=== PATIENT | male | born 1950 | race African-American/Black ===

== ENCOUNTER 2017-05-06 09:25 | Day surgery (SDC) | payer MEDICARE, BC ==
[2017-05-04 15:16] VITALS: BMI 39.1
[~2017-05-06 09:25] MED LIST: LACTATED RINGERS 1,000 ML IV SCH
[2017-05-06] MEDS ORDERED: LIDOCAINE 1% 20 ML VIAL (10MG/ML) FOR IV START INTRADERMA ONE (10:07)
[2017-05-06 10:20] VITALS: RESP 16; TEMP 98
[2017-05-06] MEDS ORDERED: LIDOCAINE 1% INJ 10MG/ML (20 ML MDV) ONE (11:15)
[2017-05-06] MEDS ORDERED: PROPOFOL 10 MG/ML 20 ML VIAL IV ONE (11:15)
--- NOTE | 2017-05-06 11:49 | P.PCN ---
Date of Procedure: 05/06/17 Procedure(s) Performed: Procedure: Colonoscopy and polypectomy. Preoperative diagnosis: Screening for neoplasia, patient has family history of colon cancer in his mother. Postoperative diagnosis: 3 small polyps in the right colon and around the hepatic flexure, snared, but no large polyps or cancer. Preparation: HalfLytely prep. Sedation: Was provided by anesthesia. Brief clinical history: The patient is a 66-year-old male who is scheduled for this evaluation because of family history of colon cancer in his mother who developed cancer at age 46. The patient had one colonoscopy many years ago. At this time, he has no abdominal complaints, bleeding or anemia. Procedure: With the patient on his left lateral decubitus position and after informed consent and adequate sedation, the perianal area was inspected and it did not show any fissures or fistulas. There were no masses felt on digital rectal examination. The Olympus CFQ 160L video colonoscope was then inserted in the rectum in the usual fashion and advanced to the cecum. There were 3 small polyps seen, two around the hepatic flexure and one on the right colon, and those were snared and retrieved by suction and submitted together. No large polyps were seen or any obvious diverticular disease or other pathology. I retroflexed the endoscope in the rectum before the endoscope was withdrawn. The patient tolerated the procedure well. Plan: The patient was reassured. He will follow up with you as planned and I recommended repeat exam in 5 years.
[2017-05-06 12:13] VITALS: BP 156/88; PULSE 51
== END 2017-05-06 12:30 | disposition home or self-care (01) ==
LOC: ORWHC2ENDO 09:25
DX: Z12.11 Encounter for screening for malignant neoplasm of colon (principal); D12.3 Benign neoplasm of transverse colon; D12.2 Benign neoplasm of ascending colon; Z80.0 Family history of malignant neoplasm of digestive organs; I10 Essential (primary) hypertension; E78.5 Hyperlipidemia, unspecified; M10.9 Gout, unspecified
CPT/HCPCS: 88305; 45385; J2001; J2704

== ENCOUNTER → 2020-05-10 | Outpatient (CLI) | payer MEDICARE | END | disposition home or self-care (01) | LOC: LABPAT 15:14 | PROVIDERS: ATTEND Orthopaedic Surgery | DX: Z01.812 Encounter for preprocedural laboratory examination (principal) | CPT/HCPCS: 87070 ==

== ENCOUNTER 2020-06-11 11:23 | Day surgery (SDC) | payer MEDICARE ==
[2020-06-05 11:12] VITALS: BMI 43.8
--- NOTE | 2020-06-10 11:03 | HP ---
HISTORY AND PHYSICAL CHIEF COMPLAINT: Left knee pain. HISTORY OF PRESENT ILLNESS: Patient is a 70-year-old retired gentleman who presents with progressive left knee pain for the past 7-8 years. It is getting worse. He is having swelling, stiffness, and soreness with any weightbearing activities. He has tried medications in addition to a home exercise program and weight loss program without much relief. He also tried therapy, but had to stop because of his symptoms. PAST MEDICAL HISTORY: Significant for reflux disease, hypercholesterolemia, hypertension, arthritis, and gout. PAST SURGICAL HISTORY: Negative. CURRENT MEDICATIONS: 1. Allopurinol. 2. Atorvastatin. 3. Calli. 4. Vitamin D. ALLERGIES: He denies drug allergies. FAMILY HISTORY: Significant for cancer. SOCIAL HISTORY: Negative for current tobacco or alcohol use. REVIEW OF SYSTEMS: Sixteen-point review of systems otherwise reviewed and is noncontributory. PHYSICAL EXAMINATION: On examination, the patient is approximately 5 feet 7 inches, 270 pounds of endomorphic habitus. HEENT exam is nonfocal. Neck is supple. He has painless passive motion of his left hip. Straight leg raise is negative. Active motion left knee -10 to 104 degrees of flexion. He has trace effusion. He is tender about the medial joint line. Collaterals are stable, Diandra is negative, Yazan's is equivocal. He has genu varum alignment. His distal neurovascular exam appears intact in the left lower extremity. Weightbearing notch, lateral and Merchant views of left knee obtained in the office show severe medial and patellofemoral compartment narrowing with [id number] changes and subchondral sclerosis. IMPRESSION: 1. Left knee severe medial and patellofemoral compartment osteoarthrosis. 2. Gout. 3. Hypertension. 4. Increased body mass index. RECOMMENDATIONS: I talked to the patient at length regarding his condition and treatment options. At this point, he is quite symptomatic and limited because of pain related to his osteoarthrosis despite previous conservative measures to include anti-inflammatories, activity modifications, and attempted weight loss. After thorough discussion, he opts to proceed with surgery. We will plan to proceed with left total knee arthroplasty. We will institute DVT prophylaxis postoperatively. MMODL / IJN: [id number] /
[~2020-06-11 11:23] MED LIST changes: +ACETAMINOPHEN TAB 500 MG TAB PO PRN; +DEXAMETHASONE SOD PHOSPHATE 4 MG/ML 1 ML VIAL IV ONE; +HYDROmorphone 0.5 MG/0.5 ML SYRINGE IVP PRN; +LIDOCAINE 1% (10MG/ML) FOR IV START INTRADERMA PRN; +MELOXICAM 7.5 MG TAB PO PRN; +MIDAZOLAM 2 MG/2 ML VIAL IV PRN; +ONDANSETRON 4 MG/2 ML VIAL IVP ONE; +TRANEXAMIC ACID 1,000 MG in SODIUM CHLORIDE 0.9% 100 ML IVPB PRN; +ceFAZolin 3 GM in SODIUM CHLORIDE 0.9% 100 ML IVPB PRN
[2020-06-11] MEDS ORDERED: fentaNYL (PF) 50 MCG/ML 2 ML AMP IVP ONE (12:08)
[2020-06-11] MEDS ORDERED: MIDAZOLAM 2 MG/2 ML VIAL IVP ONE (12:08)
[2020-06-11] MEDS ORDERED: fentaNYL (PF) 50 MCG/ML 2 ML AMP ONE (12:34)
[2020-06-11] MEDS ORDERED: PROPOFOL 10 MG/ML 20 ML VIAL IV ONE (12:34)
[2020-06-11] MEDS ORDERED: TRANEXAMIC ACID 1,000 MG/10 ML VIAL ONE (12:34)
[2020-06-11] MEDS ORDERED: MIDAZOLAM 2 MG/2 ML VIAL ONE (12:34)
[2020-06-11] MEDS ORDERED: SODIUM CHLORIDE 0.9% 100 ML BAG ONE (12:34)
[2020-06-11] MEDS: ROPIVACAINE 246.25 MG, EPINEPHrine 0.5 MG, KETOROLAC 30 MG, cloNIDine HCL/PF 80 MCG, WA... MISCELLANE PRN ×10 (13:07→14:00)
[2020-06-11] MEDS ORDERED: ROPIVACAINE 0.2%-NS ON-Q PUMP 1,090 MG, EMPTY PAIN BALL 1 EACH MISCELLANE PRN (13:09)
--- NOTE | 2020-06-11 13:13 | P.ANPRN ---
Procedure Note - Anesthesia - Nerve Block Performed Left Adductor Canal Time Out Performed: Yes (12:) Date of Procedure: 06/11/20 Procedure Start Time: Procedure Stop Time: Location of Patient: PreOp Indication: Acute Post-Operative Pain, Requested by Surgeon (Dr John) Sedation Type: Sedate with meaningful contact maintained Preparation: Sterile Prep, Sterile Dressing Position: Supine Catheter: Indwelling Needle Types: Pajunk Needle Gauge: 21 Ultrasound used to visualize needle placement: Yes Ultrasound used to observe medication spread: Yes Injectate: 0.5% Ropivacaine (see comment for volume) (20cc) Blood Aspirated: No Pain Paresthesia on Injection Noted: No Resistance on Injection: Normal Image Stored and Saved: Yes Events: Uneventful and Well Tolerated
[2020-06-11] MEDS ORDERED: NALOXONE 0.4 MG/ML 1 ML VIAL IV PRN (14:18)
[2020-06-11] MEDS ORDERED: HYDROmorphone 1 MG/ML 1 ML SYRINGE IVP PRN (14:18)
[2020-06-11] MEDS ORDERED: ONDANSETRON 4 MG/2 ML VIAL IVP PRN (14:18)
[2020-06-11] MEDS ORDERED: MAGNESIUM HYDROXIDE 2,400 MG/10 ML CUP PO PRN (14:18)
[2020-06-11] MEDS ORDERED: ACETAMINOPHEN TAB 325 MG TAB PO PRN (14:18)
[2020-06-11] MEDS ORDERED: HYDROcodone/APAP 7.5-325MG 1 EACH TAB PO PRN ×2 (14:18→14:20)
[2020-06-11] MEDS ORDERED: HYDROmorphone 0.5 MG/0.5 ML SYRINGE IVP PRN (14:18)
[2020-06-11 14:55] VITALS: TEMP 97.6
--- NOTE | 2020-06-11 15:03 | P.OP ---
Date of Procedure: 06/11/20 Preoperative Diagnosis: Left knee severe tricompartmental osteoarthrosis Postoperative Diagnosis: Same Procedure(s) Performed: Left total knee arthroplastycementedposterior stabilized Implants: Depuy Attune size 7 cemented femoral component, size 6 cemented tibial component, 12 mm articular surface, 35 mm patella. This is a posterior stabilized implant. A 14 x 50 mm tibial stem was utilized. Anesthesia: regional, local, spinal Surgeon: Angelito John Scraper Tender #1: Pino Espinal Estimated Blood Loss (ml): 50 Pathology: other (Bone fragments) Condition: stable Disposition: PACU Indications for Procedure: The patient is a 70-year-old male who presents with progressive left knee pain secondary osteoarthrosis despite conservative measures. After thorough discussion of his options he decided to proceed with surgery. Operative risks to include infection, fracture, neurovascular injury, development of blood clots, possible component loosening/failure and need for subsequent procedures was discussed. Informed consent was obtained. Operative Findings: As below Description of Procedure: The patient was brought to the operating room, and after induction of spinal anesthesia the left lower extremity was prepped and draped in a normal fashion. The tourniquet was inflated to 270 mm marker. A longitudinal incision extending 3 finger breaths above the superior pole of patella extending to the medial aspect the tibial tubercle was then made. The skin and subcutaneous tissues were divided sharply. Electrocautery was used for hemostasis. A medial pa rapatellar arthrotomy was performed. The medial soft tissues to include the superficial and deep portions of the medial collateral ligament were elevated subperiosteally. The patella was everted. A portion of the retropatellar fat pad was excised sharply. The anterior cruciate ligament was sacrificed. Blunt retractors were placed. A starting hole was made in the distal femur 1 cm anterior to the posterior cruciate ligament origin. An intramedullary femoral guide was then inserted planning on 5 valgus distal cut with 9 mm distal resection. The cutting block was pinned in place. The distal cut was then made. The posterior referencing sizing guide was utilized. I felt size 7 was most appropriate. 3 of external rotation was built into the system and verified off the trans-epicondylar axis and the posterior condyles. The cutting block was pinned in place. The anterior, posterior, and chamfer cuts then made. Bone fragments were removed. The intercondylar guide was placed and the notch cut was made with a sagittal saw. The bone block was removed in one fragment. The trial component was then placed. There is good anterior to posterior and medial to lateral fit. The distal peg holes were drilled. The trial component was removed. Attention was then paid towards preparing the proximal femur. An extra medullary guide was utilized in line with the tibial shaft and second metatarsal distally. I planned on 2 mm resection from the medial compartment. The cutting block was pinned in place. The proximal tibial cut was then made. The bone was removed in one fragment. The remnants of the medial and lateral menisci were excised at the capsular junction with electrocautery. The tibia sized most appropriately at size 6. The trial femoral and tibial components w ere placed along with a 9 mm articular surface. I was able to obtain full flexion and extension with internal and external rotation. After several flexion and extension cycles, the tibial rotation was marked with electrocautery line with the medial one third of the tibial tubercle. Attention was then paid towards preparing the patella. A patella reamer was utilized taking stem to 14 mm of bone stock. A good flush cut was made. The patella sized most appropriately 35 mm. The peg holes were drilled. The trial components placed. I had good patellofemoral tracking with no hands technique. The trial components were then removed. The tibia was prepared in the appropriate rotation with appropriate drill and keel punch planning on a 14 x 50 mm tibial stem extension. The posterior osteophytes were removed with a curved osteotome. The flexion and extension gaps were checked and felt to be symmetric at 12 mm. A trial components were then removed. The posterior soft tissues were injected with ropivacaine. The bony surfaces were prepared with pulsatile lavage and dried. The tibial component was then cemented place was fully seated. Excess cement was removed. The femoral component cemented place and was fully seated. Excess cement was removed. The trial 12 mm articular surface was placed and the knee was put in full extension. The patella component was cemented place. After the cement had sufficiently hardened, the knee was again taken through a range of motion. Again I was able to obtain full flexion and extension with varus and valgus stress. The trial 12 mm articular surface was removed and the final one inserted. This was fully seated. Care was taken to avoid any soft tissue interposition. Pulsatile lavage was again utilized. The medial parapatellar arthrotomy was closed with #2 Ethibond suture. The tourniquet was deflated with approximately 60 minutes total tourniquet time. Final hemostasis was obtained with the cautery. There was minimal bleeding therefore a deep drain was not placed. The subcutaneous tissues were reapproximated with interrupted 2-0 Vicryl sutures. The skin was reapproximated with 3-0 subcuticular strata fix suture. Skin tape and adhesive was applied. A sterile dressing was applied. The patient was awoken from sedation and transferred to recovery room in good condition. Blood loss was estimated at 50 mL. No complications were incurred. Sponge and needle counts were correct at the end of the case. Ender BEAUCHAMP assisted during the major components of this case to include exposure, bone resection, implantation, and closure.
--- NOTE | 2020-06-11 15:25 | XR ---
EXAMINATION TYPE: XR knee limited LT DATE OF EXAM: 06/11/2020 CLINICAL HISTORY: pain TECHNIQUE: Three views of the left knee are obtained. COMPARISON: None. FINDINGS: There is no acute fracture/dislocation. The tri-compartment joint spaces appear within no rmal limits. The overlying soft tissue appears unremarkable. IMPRESSION: There is no acute fracture or dislocation ICD 10 NO FRACTURE, INITIAL EVALUATION
[2020-06-11] MEDS ORDERED: HYDROcodone/APAP 7.5-325MG 1 EACH TAB PO ONE (17:23)
[2020-06-11 17:43] VITALS: RESP 20
[2020-06-11 17:56] VITALS: BP 125/80; PULSE 76
[2020-06-11] MEDS ORDERED: ceFAZolin 3 GM in SODIUM CHLORIDE 0.9% 100 ML IVPB ONE (19:00)
[2020-06-11] MEDS ORDERED: SENNOSIDES-DOCUSATE SODIUM 1 EACH TAB PO SCH (21:00)
[2020-06-12] MEDS ORDERED: RIVAROXABAN 10 MG TAB PO SCH (09:00)
== END 2020-06-11 19:24 | disposition home health service (06) ==
LOC: OR 11:23
PROVIDERS: ATTEND Orthopaedic Surgery
DX: M17.12 Unilateral primary osteoarthritis, left knee (principal); K21.9 Gastro-esophageal reflux disease without esophagitis; E78.00 Pure hypercholesterolemia, unspecified; I10 Essential (primary) hypertension; M19.90 Unspecified osteoarthritis, unspecified site; Z79.899 Other long term (current) drug therapy
CPT/HCPCS: 97161; 64448; 76942; 73560; 27447; C1713; C1776; J2250; J0171; J1100; J0690; J2405; J3010; J1885; J2795 ×2; J2704; J0735; 88300

== ENCOUNTER → 2020-07-17 | Outpatient (CLI) | payer MEDICARE ==
[2020-07-17 13:58] LABS: Basophils % (A) 1 %; Eosinophils # (A) 0.2 k/uL (0-0.7); Eosinophils % (A) 4 %; HCT 39.9 % (39.0-53.0); HGB 13.5 gm/dL (13.0-17.5); Lymphocytes % (A) 35 %; MCH 30.1 pg (25.0-35.0); MCHC 33.9 g/dL (31.0-37.0); MCV 88.9 fL (80.0-100.0); Mean Platelet Volume 7.5; Monocytes # (A) 0.3 k/uL (0-1.0); Monocytes % (A) 6 %; Neutrophils # (A) 2.9 k/uL (1.3-7.7); Neutrophils % (A) 52 %; Platelet Count 228 k/uL (150-450); RBC 4.49 m/uL (4.30-5.90); RDW 13.2 % (11.5-15.5); WBC 5.6 k/uL (3.8-10.6)
[2020-07-17 14:07] LABS: Potassium 4.7 mmol/L (3.5-5.1)
[2020-07-17 14:12] LABS: INR 0.9 (<1.2); Prothrombin Time 10.2 sec (9.0-12.0)
== END | disposition home or self-care (01) ==
LOC: LABPAT 13:03
PROVIDERS: ATTEND Orthopaedic Surgery
DX: Z01.812 Encounter for preprocedural laboratory examination (principal); M17.11 Unilateral primary osteoarthritis, right knee
CPT/HCPCS: 80051; 85025; 85610

== ENCOUNTER 2020-07-23 08:37 | Day surgery (SDC) | payer MEDICARE ==
[2020-07-17 12:53] VITALS: BMI 42.5
--- NOTE | 2020-07-22 10:01 | HP ---
HISTORY AND PHYSICAL CHIEF COMPLAINT: Right knee pain. HISTORY OF PRESENT ILLNESS: The patient is a 70-year-old male who is retired, who presents with progressive right knee pain for the past several years. It has worsened recently. He is having difficult time with normal weightbearing activities. He notes intermittent stiffness and swelling. He is having night symptoms. He recently underwent a left total knee arthroplasty. PAST MEDICAL HISTORY: Significant for gastroesophageal reflux disease, hypertension, hypercholesterolemia, and arthritis. PAST SURGICAL HISTORY: Significant for left total knee arthroplasty. CURRENT MEDICATIONS: 1. Allopurinol. 2. Atorvastatin. 3. Calli. ALLERGIES: He denies drug allergies. FAMILY HISTORY: Significant for cancer. SOCIAL HISTORY: Negative for current tobacco or alcohol use. REVIEW OF SYSTEMS: Sixteen-point review of systems otherwise reviewed and is noncontributory. PHYSICAL EXAMINATION: On examination, the patient is approximately 5 feet tall, 280 pounds of endomorphic habitus. HEENT exam is nonfocal. Neck is supple. He has painless passive motion of his left hip. Straight leg raise is negative. Active motion right knee -10 to 105 degrees of flexion. He has mild effusion. He is tender about the medial joint line. Collaterals are stable, Diandra is negative, Yazan's is equivocal. He has genu varum alignment. His distal neurovascular exam appears intact in the right lower extremity. Weightbearing notch, lateral Merchant views right knee obtained in the office show severe medial and patellofemoral compartment narrowing with [id number] changes and subchondral sclerosis. IMPRESSION: 1. Right knee severe medial and patellofemoral compartment osteoarthrosis. 2. History of gout. 3. Hypertension. RECOMMENDATIONS: I talked to the patient at length regarding his condition and treatment options. At this point, he is quite symptomatic and limited because of pain related to his osteoarthrosis despite conservative measures. After thorough discussion, he opts to proceed with surgery. We will plan to proceed with right total knee arthroplasty. We will institute DVT prophylaxis postoperatively. Risks and benefits were discussed at length in layman's terms. MMODL / IJN: [id number] /
[~2020-07-23 08:37] MED LIST changes: -LIDOCAINE 1% (10MG/ML) FOR IV START INTRADERMA PRN; -MIDAZOLAM 2 MG/2 ML VIAL IV PRN; +ROPIVACAINE/EPI/CLONIDINE/KET 50 ML SYRINGE MISCELLANE PRN
[2020-07-23] MEDS ORDERED: MIDAZOLAM 2 MG/2 ML VIAL IVP ONE (09:38)
[2020-07-23] MEDS ORDERED: fentaNYL (PF) 50 MCG/ML 2 ML AMP IVP ONE (09:40)
[2020-07-23] MEDS ORDERED: SUCCINYLCHOLINE CHLORIDE VIAL 200 MG/10 ML VIAL IV ONE (10:45)
[2020-07-23] MEDS ORDERED: LIDOCAINE 1% INJ 10MG/ML (20 ML MDV) ONE (10:45)
[2020-07-23] MEDS ORDERED: fentaNYL (PF) 50 MCG/ML 2 ML AMP ONE (10:45)
[2020-07-23] MEDS ORDERED: SODIUM CHLORIDE 0.9% 100 ML BAG ONE (10:45)
[2020-07-23] MEDS ORDERED: ROPIVACAINE 5 MG/ML 30 ML VIAL ONE (10:45)
[2020-07-23] MEDS ORDERED: HYDROmorphone (PF) 1 MG/ML ONE (10:45)
[2020-07-23] MEDS ORDERED: NEOSTIGMINE 1 MG/ML 10 ML VIAL ONE (10:45)
[2020-07-23] MEDS ORDERED: TRANEXAMIC ACID 1,000 MG/10 ML VIAL ONE (10:45)
[2020-07-23] MEDS ORDERED: PROPOFOL 10 MG/ML 20 ML VIAL IV ONE (10:45)
[2020-07-23] MEDS ORDERED: MIDAZOLAM 2 MG/2 ML VIAL ONE (10:45)
[2020-07-23] MEDS ORDERED: GLYCOPYRROLATE 0.2 MG/ML 2 ML VIAL ONE (10:45)
[2020-07-23] MEDS ORDERED: ROCURONIUM 10 MG/ML (5 ML VIAL) IV ONE (10:45)
[2020-07-23] MEDS ORDERED: ROPIVACAINE 0.2%-NS ON-Q PUMP 1,090 MG, EMPTY PAIN BALL 1 EACH MISCELLANE PRN (12:12)
--- NOTE | 2020-07-23 12:14 | P.ANPRN ---
Procedure Note - Anesthesia - Nerve Block Performed Right Adductor Canal Time Out Performed: Yes (:37) Date of Procedure: 07/23/20 Procedure Start Time: Procedure Stop Time: Location of Patient: PreOp Indication: Acute Post-Operative Pain, Requested by Surgeon (Dr John) Sedation Type: Sedate with meaningful contact maintained Preparation: Sterile Prep, Sterile Dressing Position: Supine Catheter: Indwelling Needle Types: Pajunk Needle Gauge: 21 Ultrasound used to visualize needle placement: Yes Ultrasound used to observe medication spread: Yes Injectate: 0.5% Ropivacaine (see comment for volume) (15cc) Blood Aspirated: No Pain Paresthesia on Injection Noted: No Resistance on Injection: Normal Image Stored and Saved: Yes Events: Uneventful and Well Tolerated
--- NOTE | 2020-07-23 12:15 | P.ANPRN ---
Procedure Note - Anesthesia - Nerve Block Performed Right iPack Time Out Performed: Yes (:53) Date of Procedure: 07/23/20 Procedure Start Time: Procedure Stop Time: :06 Location of Patient: PreOp Indication: Acute Post-Operative Pain, Requested by Surgeon (Dr John) Sedation Type: Sedate with meaningful contact maintained Preparation: Sterile Prep Position: Supine Catheter: None Needle Types: Pajunk Needle Gauge: 21 Ultrasound used to visualize needle placement: Yes Ultrasound used to observe medication spread: Yes Injectate: 0.5% Ropivacaine (see comment for volume) (15cc) Blood Aspirated: No Pain Paresthesia on Injection Noted: No Resistance on Injection: Normal Image Stored and Saved: Yes Events: Uneventful and Well Tolerated
[2020-07-23] MEDS ORDERED: LACTATED RINGERS 1,000 ML IV ONE (13:03)
--- NOTE | 2020-07-23 13:18 | P.OP ---
Date of Procedure: 07/23/20 Preoperative Diagnosis: Right knee severe tricompartmental osteoarthrosis Postoperative Diagnosis: Same Procedure(s) Performed: Right total knee arthroplastycementedposterior stabilized Implants: Depuy Attune size 7 cemented component, size 6 cemented tibial component with a 14 x 50 mm stem extension, 10 mm articular surface, 35 mm cemented patellar component. This is a posterior stabilized implant. Anesthesia: [facility], [facility] Surgeon: Angelito John High Lighter #1: Pino Espinal Estimated Blood Loss (ml): 50 Pathology: other (Bone fragments) Condition: stable Disposition: PACU Indications for Procedure: The patient is a 70-year-old male presents to progressive knee pain secondary to osteoarthrosis despite conservative measures. He discussion of the risks and benefits of operative intervention versus continued conservative measures was made with the patient. He opted to proceed with surgery. Operative risks to include infection, neurovascular injury, development of blood clots, possible component loosening, possible fracture, possible need for subsequent procedures was discussed. Informed consent was obtained. Operative Findings: As below Description of Procedure: The patient was brought to the operating room, and after induction of spinal anesthesia the right lower extremity was prepped and draped in a normal fashion. The tourniquet was inflated to 270 mm marker. A longitudinal incision extending 3 finger breaths above the superior pole of patella extending to the medial aspect the tibial tubercle was then made. The skin and subcutaneous tissues were divided sharply. Electrocautery was used for hemostasis. A medial parapatellar arthrotomy was performed. The medial soft tissues to include the superficial and deep portions of the medial collateral ligament were elevated subperiosteally. The patella was everted. A portion of the retropatellar fat pad was excised sharply. The anterior cruciate ligament was sacrificed. Blunt retractors were placed. A starting hole was made in the distal femur 1 cm anterior to the posterior cruciate ligament origin. An intramedullary femoral guide was then inserted planning on 5 valgus distal cut with 9 mm distal resection. The cutting block was pinned in place. The distal cut was then made. The posterior referencing sizing guide was utilized. I felt size 7 was most appropriate. 3 of external rotation was built into the system and verified off the trans-epicondylar axis and the posterior condyles. The cutting block was pinned in place. The anterior, posterior, and chamfer cuts then made. Bone fragments were removed. The intercondylar guide was placed and the notch cut was made with a sagittal saw. The bone block was removed in one fragment. The trial component was then placed. There is good anterior to posterior and medial to lateral fit. The distal peg holes were drilled. The trial component was removed. Attention was then paid towards preparing the proximal femur. An extra medullary guide was utilized in line with the tibial shaft and second metatarsal distally. I planned on 2 mm resection from the medial compartment. The cutting block was pinned in place. The proximal tibial cut was then made. The bone was removed in one fragment. The remnants of the medial and lateral menisci were excised at the capsular junction with electrocautery. The tibia sized most appropriately at size 6. The trial femoral and tibial components were placed along with a 10 mm articular surface. I was able to obtain full flexion and extension with internal and external rotation. After several flexion and extension cycles, the tibial rotation was marked with electrocautery line with the medial one third of the tibial tubercle. Attention was then paid towards preparing the patella. A patella reamer was utilized taking stem to 14 mm of bone stock. A good flush cut was made. The patella sized most appropriately 35 mm. The peg holes were drilled. The trial components placed. I had good patellofemoral tracking with no hands technique. The trial components were then removed. The tibia was prepared in the appropriate rotation with appropriate drill and keel punch. The posterior osteophytes were removed with a curved osteotome. The flexion and extension gaps were checked and felt to be symmetric at 10 mm. A trial components were then re moved. The bony surfaces were prepared with pulsatile lavage and dried. The tibial component was then cemented place was fully seated. Excess cement was removed. The femoral component cemented place and was fully seated. Excess cement was removed. The trial 10 mm articular surface was placed and the knee was put in full extension. The patella component was cemented place. After the cement had sufficiently hardened, the knee was again taken through a range of motion. Again I was able to obtain full flexion and extension with varus and valgus stress. The trial 10 mm articular surface was removed and the final one inserted. This was fully seated. Care was taken to avoid any soft tissue interposition. Pulsatile lavage was again utilized. The medial parapatellar arthrotomy was closed with #2 Ethibond suture. The tourniquet was deflated with approximately 70 minutes total tourniquet time. Final hemostasis was obtained with the cautery. There was minimal bleeding therefore a deep drain was not placed. The subcutaneous tissues were reapproximated with interrupted 2-0 Vicryl sutures. The skin was reapproximated with 3-0 subcuticular strata fix suture. Skin tape and adhesive was applied. A sterile dressing was applied. The patient was awoken from sedation and transferred to recovery room in good condition. Blood loss was estimated at 50 mL. No complications were incurred. Sponge and needle counts were correct at the end of the case. Ender BEAUCHAMP assisted during the major components of this case to include exposure, bone resection, implantation, and closure.
[2020-07-23 13:33] VITALS: TEMP 97.3
[2020-07-23] MEDS: HYDROmorphone 1 MG/ML 1 ML SYRINGE IVP ONE ×4 (13:42→14:18)
[2020-07-23 13:54] VITALS: RESP 16
--- NOTE | 2020-07-23 15:25 | XR ---
Limited right knee HISTORY: Status post total knee arthroplasty 2 views of the right knee Patient is status post right knee arthroplasty. There is anatomic alignment. Lucency is present in th e soft tissues. IMPRESSION: Orthopedic follow-up.
[2020-07-23 16:50] VITALS: BP 140/77; PULSE 78
[2020-07-23] MEDS ORDERED: ceFAZolin 3 GM in SODIUM CHLORIDE 0.9% 100 ML IVPB ONE (17:00)
[2020-07-23] MEDS ORDERED: ONDANSETRON 4 MG/2 ML VIAL ONE (17:13)
== END 2020-07-23 17:37 | disposition home health service (06) ==
LOC: OR 08:37
PROVIDERS: ATTEND Orthopaedic Surgery
DX: M17.11 Unilateral primary osteoarthritis, right knee (principal); K21.9 Gastro-esophageal reflux disease without esophagitis; I10 Essential (primary) hypertension; E78.00 Pure hypercholesterolemia, unspecified; Z20.822 Contact with and (suspected) exposure to COVID-19; Z96.652 Presence of left artificial knee joint; Z80.9 Family history of malignant neoplasm, unspecified; M10.9 Gout, unspecified; Z79.899 Other long term (current) drug therapy
CPT/HCPCS: 97162; 64999; 64448; 76942; 88300; 87635; 73560; 27447; C1713; C1776; J2250; J0330; J1100; J2710; J0690; J2405; J2001; J3010; J1170; J2795 ×2; J2704

== ENCOUNTER → 2021-10-13 | Outpatient (CLI) | payer MEDICARE ==
[2021-10-13 17:57] LABS: Basophils # (A) 0.01 X 10*3/uL (0.00-0.10); Basophils % (A) 0.3 %; Eosinophils # (A) 0.19 X 10*3/uL (0.04-0.35); Eosinophils % (A) 5.1 %; HCT 41.4 % (39.6-50.0); HGB 13.2 g/dL (13.0-17.0); Immature Grans, Automated 0.3 %; Lymphocytes # (A) 1.39 X 10*3/uL (0.90-5.00); Lymphocytes % (A) 37.6 %; MCH 28.5 pg (27.0-32.0); MCHC 31.9 g/dL (32.0-37.0); MCV 89.4 fL (80.0-97.0); Mean Platelet Volume 10.9 fL (9.5-12.2); Monocytes # (A) 0.35 X 10*3/uL (0.20-1.00); Monocytes % (A) 9.5 %; NRBC Per 100 WBC 0 /100 WBCS (0.0-0.0); Neutrophils # (A) 1.75 X 10*3/uL (1.80-7.70); Neutrophils % (A) 47.2 %; Platelet Count 199 X 10*3/uL (140-440); RBC 4.63 X 10*6/uL (4.40-5.60)
[2021-10-13 18:21] LABS: African American GFR (CKD) 63.6 (60.0-200.0); Anion Gap 8.8 mmol/L (10.00-18.00); BUN/Creat Ratio 10.46 Ratio (12.00-20.00); Blood Urea Nitrogen 13.6 mg/dL (9.0-27.0); Calcium 9.6 mg/dL (8.7-10.3); Carbon Dioxide 25.2 mmol/L (20.0-27.5); Non-African American GFR(CKD) 54.9 (60.0-200.0); Potassium 4.8 mmol/L (3.5-5.5)
== END | disposition home or self-care (01) ==
LOC: LABPAT 11:14
PROVIDERS: ATTEND Orthopaedic Surgery
DX: Z01.812 Encounter for preprocedural laboratory examination (principal)
CPT/HCPCS: 80048; 85025; 93005

== ENCOUNTER 2022-07-07 10:01 | Day surgery (SDC) | payer MEDICARE ==
[2022-07-01 15:28] VITALS: BMI 42.3
[~2022-07-07 10:01] MED LIST changes: -ACETAMINOPHEN TAB 500 MG TAB PO PRN; -DEXAMETHASONE SOD PHOSPHATE 4 MG/ML 1 ML VIAL IV ONE; -HYDROmorphone 0.5 MG/0.5 ML SYRINGE IVP PRN; -MELOXICAM 7.5 MG TAB PO PRN; -ONDANSETRON 4 MG/2 ML VIAL IVP ONE; -ROPIVACAINE/EPI/CLONIDINE/KET 50 ML SYRINGE MISCELLANE PRN; -TRANEXAMIC ACID 1,000 MG in SODIUM CHLORIDE 0.9% 100 ML IVPB PRN; -ceFAZolin 3 GM in SODIUM CHLORIDE 0.9% 100 ML IVPB PRN
[2022-07-07 10:24] VITALS: RESP 16; TEMP 96.9
[2022-07-07] MEDS ORDERED: LACTATED RINGERS 1,000 ML IV ONE (10:30)
[2022-07-07] MEDS ORDERED: PROPOFOL 10 MG/ML 20 ML VIAL IV ONE (11:11)
--- NOTE | 2022-07-07 11:25 | P.PCN ---
Date of Procedure: 07/07/22 Procedure(s) Performed: BRIEF HISTORY: Patient is a 72-year-old pleasant -Citizen Of [place] male scheduled for an elective colonoscopy as a part of screening for colorectal neoplasia. His last colonoscopy was 4 years ago and was noted to have colon polyps and he also has family history of colon cancer diagnosed in her mother at age 54. PROCEDURE PERFORMED: Colonoscop with biopsy y. PREOPERATIVE DIAGNOSIS: Screening for colon cancer/family history of colon cancer IV sedation per Anesthesia. PROCEDURE: After informed consent was obtained, the patient, was brought into the endoscopy unit. IV sedation was administered by Anesthesia under continuous monitoring. Digital rectal examination was normal. Initially the Olympus CF-160 flexible video colonoscope was then inserted in the rectum, gradually advanced into the cecum without any difficulty. Careful examination was performed as the scope was gradually being withdrawn. Ileocecal valve and the appendiceal orifice were visualized and appeared normal. Prep was excellent. Mucosa of the cecum, normal. Ascending colon there was a 5 mm polyp that was removed by cold biopsy. In the hepatic flexure there was a 5 mm polyp removed by cold biopsy. In the transverse colon there were 2 polyps measuring between 3 mm and 4 mm in size removed by cold biopsy. Rest of the ascending colon, transverse colon, descending colon, sigmoid colon, and rectum appeared normal. Retroflexion was performed in the rectum and no lesions were seen. The patient tolerated the procedure well. IMPRESSION: 4 mm ascending colon polyp status post cold biopsy 5 mm hepatic flexure polyp status post cold biopsy 3 mm and 4 mm transverse colon polyp status post cold biopsy RECOMMENDATIONS: Findings of this examination were discussed with the patient as well as his family. He was advised to have the biopsy results and have a repeat screening colonoscopy every 5 years because of the family history of colon cancer.
[2022-07-07 12:04] VITALS: BP 134/90; PULSE 52
== END 2022-07-07 12:07 | disposition home or self-care (01) ==
LOC: ORWHC2ENDO 10:01
PROVIDERS: ATTEND Internal Medicine Gastroenterology
DX: Z12.11 Encounter for screening for malignant neoplasm of colon (principal); D12.2 Benign neoplasm of ascending colon; D12.3 Benign neoplasm of transverse colon; I10 Essential (primary) hypertension; E78.5 Hyperlipidemia, unspecified; Z80.0 Family history of malignant neoplasm of digestive organs; Z86.010 Personal history of colon polyps; Z79.899 Other long term (current) drug therapy
CPT/HCPCS: 88305; 45380; J2704

== ENCOUNTER 2023-07-12 18:30 | Emergency (ER) | payer MEDICARE ==
--- NOTE | 2023-07-12 18:43 | ED ---
Abdominal Pain HPI - General Source: patient, RN notes reviewed Mode of arrival: ambulatory Limitations: no limitations <Belle Simmons - Last Filed: 07/12/23 18:42> - General Source: patient, family, RN notes reviewed Mode of arrival: ambulatory Limitations: no limitations <Gavin Morris - Last Filed: 07/13/23 00:23> - General Chief Complaint: Abdominal Pain Stated Complaint: Abd Pain,Vomiting Time Seen by Provider: 07/12/23 18:42 - History of Present Illness Initial Comments: Quick note: 73-year-old male presented to the ER with a chief complaint of left lower quadrant abdominal pain. He states that started this morning and has been progressively worse. He also endorses nausea and vomiting. Denies any constipation/diarrhea, fevers, chills. No urinary complaints. (Belle Simmons) Patient is a 73-year-old male present to the emergency department with left flank pain. Onset of symptoms was this morning. Discomfort has been persisted rated 7/10. Patient has had nausea with multiple episodes of vomiting. No fever. No history of similar symptoms previously. No constipation nor diarrhea. (Gavin Morris) - Related Data Home Medications Medication Instructions Recorded Confirmed allopurinoL [Zyloprim] 100 mg PO DAILY 03/30/15 07/01/22 Cholecalciferol [Vitamin D3] 2,000 unit PO DAILY 05/04/17 07/01/22 Atorvastatin [Lipitor] 20 mg PO DAILY 07/17/20 07/01/22 Atorvastatin [Lipitor] 40 mg PO DAILY 07/01/22 07/01/22 carvediloL [Coreg] 3.125 mg PO BID 07/01/22 07/01/22 Previous Rx's Medication Instructions Recorded Ketorolac [Toradol] 10 mg PO Q6HR PRN #15 tab 07/12/23 Metoclopramide HCl [Reglan] 10 mg PO Q6HR PRN #15 tablet 07/12/23 Allergies Allergy/AdvReac Type Severity Reaction Status Date / Time No Known Allergies Allergy Verified 07/12/23 18:37 Review of Systems ROS Other: All systems not noted in ROS Statement are negative. <Belle Simmons - Last Filed: 07/12/23 18:42> ROS Other: All systems not noted in ROS Statement are negative. Constitutional: Denies: fever Eyes: Denies: eye pain ENT: Denies: ear pain Respiratory: Denies: cough, dyspnea Cardiovascular: Denies: palpitations Endocrine: Denies: fatigue Gastrointestinal: Reports: as per HPI, abdominal pain, nausea, vomiting Genitourinary: Denies: dysuria, hematuria Musculoskeletal: Denies: back pain <Gavin Morris - Last Filed: 07/13/23 00:23> ROS Statement: Those systems with pertinent positive or pertinent negative responses have been documented in the HPI. Past Medical History Past Medical History: Hyperlipidemia, Hypertension Additional Past Medical History / Comment(s): GOUT History of Any Multi-Drug Resistant Organisms: None Reported Past Surgical History: Joint Replacement Additional Past Surgical History / Comment(s): COLONOSCOPY, CATARACTS, BILAT TKA Past Anesthesia/Blood Transfusion Reactions: No Reported Reaction Past Psychological History: No Psychological Hx Reported Smoking Status: Never smoker Past Alcohol Use History: None Reported Past Drug Use History: None Reported - Past Family History Father Family Medical History: Cancer, Hypertension Additional Family Medical History / Comment(s): Prostate Mother Family Medical History: Cancer Additional Family Medical History / Comment(s): COLON CANCER Brother(s) Family Medical History: Hypertension Sister(s) Family Medical History: No Reported History <Belle Simmons - Last Filed: 07/12/23 18:42> General Exam Limitations: no limitations <Belle Simmons - Last Filed: 07/12/23 18:42> Limitations: no limitations General appearance: alert, in no apparent distress Head exam: Present: normocephalic Eye exam: Present: normal appearance Respiratory exam: Present: normal lung sounds bilaterally Cardiovascular Exam: Present: regular rate, normal rhythm GI/Abdominal exam: Present: soft, normal bowel sounds. Absent: distended, tenderness, guarding, rebound, rigid, pulsatile mass Extremities exam: Present: normal inspection Neurological exam: Present: alert Psychiatric exam: Present: normal affect, normal mood Skin exam: Present: normal color <Gavin Morris - Last Filed: 07/13/23 00:23> - General Exam Comments Initial Comments: Visual Physical Exam Vital signs reviewed General: Well-appearing, nontoxic, no acute distress. Head: Normocephalic, atraumatic Eyes: PERRLA, EOMI ENT: Airway patent Chest: Nonlabored breathing Skin: No visual rash, normal skin tone Neuro: Alert and oriented 3 Musculoskeletal: No gross abnormalities (Belle Simmons) Course Vital Signs 07/12/23 18:32 Temperature 98.8 F Pulse Rate 59 L Respiratory 20 Rate Blood Pressure 167/98 O2 Sat by Pulse 99 Oximetry Medical Decision Making <Belle Simmons - Last Filed: 07/12/23 18:42> - Lab Data Result diagrams: 07/12/23 20:55 07/12/23 22:05 <Gavin Morris - Last Filed: 07/13/23 00:23> - Medical Decision Making I performed the quick note portion of this chart. Electronically signed by Belle Simmons PA-C (Belle Simmons) Was pt. sent in by a medical professional or institution ([facility], [employer], urgent care, hospital, or fci...) When possible be specific @ -No Did you speak to anyone other than the patient for history (EMS, parent, family, police, friend...)? What history was obtained from this source @ -No Did you review nursing and triage notes (agree or disagree)? Why? @ -I reviewed and agree with nursing and triage notes Were old charts reviewed (outside hosp., previous admission, EMS record, old EKG, old radiological studies, urgent care reports/EKG's, fci records)? Report findings @ -No old charts were reviewed Differential Diagnosis (chest pain, altered mental status, abdominal pain women, abdominal pain men, vaginal bleeding, weakness, fever, dyspnea, syncope, headache, dizziness, GI bleed, back pain, seizure, CVA, palpatations, mental health, musculoskeletal)? @ -Differential Abdominal Pain Men: Appendicitis, cholecystitis, diverticulosis, ischemic bowel, pancreatitis, hepatitis, UTI, gastroenteritis, AAA, incarcerated hernia, bowel obstruction, constipation, inflammatory bowel, hepatitis, peptic ulcer disease, splenic infarction, perforated viscus, testicular torsion, this is not meant to be an all-inclusive list EKG interpreted by me (3pts min.). @ -As above X-rays interpreted by me (1pt min.). @ -None done CT interpreted by me (1pt min.). @ -CT scan abdomen pelvis shows left ureteral stone with mild hydronephrosis U/S interpreted by me (1pt. min.). @ -None done What testing was considered but not performed or refused? (CT, X-rays, U/S, labs)? Why? @ -None What meds were considered but not given or refused? Why? @ -None Did you discuss the management of the patient with other professionals (professionals i.e. , PA, SUBSTITUTE TEACHER, lab, RT, psych nurse, social and human services assistant, inventory transcriber, teacher, energy control officer, telehealth case manager)? Give summary @ -No Was smoking cessation discussed for >3mins.? @ -No Was critical care preformed (if so, how long)? @ -No Were there social determinants of health that impacted care today? How? (Homelessness, low income, unemployed, alcoholism, drug addiction, transportation, low edu. Level, literacy, decrease access to med. care, senior care, rehab)? @ -No Was there de-escalation of care discussed even if they declined (Discuss DNR or withdrawal of care, Hospice)? DNR status @ -No What co-morbidities impacted this encounter? (DM, HTN, Smoking, COPD, CAD, Cancer, CVA, ARF, Chemo, Hep., AIDS, mental health diagnosis, sleep apnea, morbid obesity)? @ -None Was patient admitted / discharged? Hospital course, mention meds given and route, prescriptions, significant lab abnormalities, going to OR and other pertinent info. @ -Patient presents with nausea vomiting and left-sided abdominal discomfort. [address] scan. Patient reevaluation after medications and is significantly improved and comfortable discharge home. Patient and family are updated on results and plan. Patient will be discharged with follow-up Undiagnosed new problem with uncertain prognosis? @ -No Drug Therapy requiring intensive monitoring for toxicity (Heparin, Nitro, Insulin, Cardizem)? @ -No Were any procedures done? @ -No Diagnosis/symptom? @ -Ureterolithiasis Acute, or Chronic, or Acute on Chronic? @ -Acute Uncomplicated (without systemic symptoms) or Complicated (systemic symptoms)? @ -Default Side effects of treatment? @ -No Exacerbation, Progression, or Severe Exacerbation? @ -No Poses a threat to life or bodily function? How? (Chest pain, USA, CT, pneumonia, PE, COPD, DKA, ARF, appy, cholecystitis, CVA, Diverticulitis, Homicidal, Suicidal, threat to staff... and all critical care pts) @ -No (Gavin Morris) - Lab Data Lab Results 07/12/23 07/12/23 07/12/23 Range/Units 20:55 20:55 21:01 WBC 8.6 (3.8-10.6) k/uL RBC 5.43 (4.30-5.90) m/uL Hgb 15.2 (13.0-17.5) gm/dL Hct 49.2 (39.0-53.0) % MCV 90.6 (80.0-100.0) fL MCH 28.0 (25.0-35.0) pg MCHC 30.9 L (31.0-37.0) g/dL RDW 13.0 (11.5-15.5) % Plt Count 201 (150-450) k/uL MPV 8.3 Neutrophils % 79 % Lymphocytes % 15 % Monocytes % 4 % Eosinophils % 1 % Basophils % 1 % Neutrophils # 6.8 (1.3-7.7) k/uL Lymphocytes # 1.3 (1.0-4.8) k/uL Monocytes # 0.4 (0-1.0) k/uL Eosinophils # 0.1 (0-0.7) k/uL Basophils # 0.1 (0-0.2) k/uL PT (10.0-12.5) sec INR (<1.2) APTT (22.0-30.0) sec Sodium (137-145) mmol/L Potassium (3.5-5.1) mmol/L Chloride (98-107) mmol/L Carbon Dioxide (22-30) mmol/L Anion Gap mmol/L BUN (9-20) mg/dL Creatinine (0.66-1.25) mg/dL Est GFR (CKD-EPI)AfAm (>60 ml/min/1.73 sqM) Est GFR (CKD-EPI)NonAf (>60 ml/min/1.73 sqM) Glucose (74-99) mg/dL Plasma Lactic Acid Carl 1.8 (0.7-2.0) mmol/L Calcium (8.4-10.2) mg/dL Phosphorus (2.5-4.5) mg/dL Magnesium (1.6-2.3) mg/dL Total Bilirubin (0.2-1.3) mg/dL AST (17-59) U/L ALT (4-49) U/L Alkaline Phosphatase (38-126) U/L Troponin I (0.000-0.034) ng/mL Total Protein (6.3-8.2) g/dL Albumin (3.5-5.0) g/dL Amylase (30-110) U/L Lipase (23-300) U/L Urine Color Light Yellow Urine Appearance Clear (Clear) Urine pH 5.5 (5.0-8.0) Ur Specific [place] 1.023 (1.001-1.035) Urine Protein Negative (Negative) Urine Glucose (UA) Negative (Negative) Urine Ketones Negative (Negative) Urine Blood Moderate H (Negative) Urine Nitrite Negative (Negative) Urine Bilirubin Negative (Negative) Urine Urobilinogen <2.0 (<2.0) mg/dL Ur Leukocyte Esterase Negative (Negative) Urine RBC 4 (0-5) /hpf Urine WBC <1 (0-5) /hpf Urine Mucus Rare H (None) /hpf 07/12/23 07/12/23 07/12/23 Range/Units 22:05 22:05 22:05 WBC (3.8-10.6) k/uL RBC (4.30-5.90) m/uL Hgb (13.0-17.5) gm/dL Hct (39.0-53.0) % MCV (80.0-100.0) fL MCH (25.0-35.0) pg MCHC (31.0-37.0) g/dL RDW (11.5-15.5) % Plt Count (150-450) k/uL MPV Neutrophils % % Lymphocytes % % Monocytes % % Eosinophils % % Basophils % % Neutrophils # (1.3-7.7) k/uL Lymphocytes # (1.0-4.8) k/uL Monocytes # (0-1.0) k/uL Eosinophils # (0-0.7) k/uL Basophils # (0-0.2) k/uL PT 10.1 (10.0-12.5) sec INR 0.9 (<1.2) APTT 21.0 L (22.0-30.0) sec Sodium (137-145) mmol/L Potassium (3.5-5.1) mmol/L Chloride (98-107) mmol/L Carbon Dioxide (22-30) mmol/L Anion Gap mmol/L BUN (9-20) mg/dL Creatinine (0.66-1.25) mg/dL Est GFR (CKD-EPI)AfAm (>60 ml/min/1.73 sqM) Est GFR (CKD-EPI)NonAf (>60 ml/min/1.73 sqM) Glucose (74-99) mg/dL Plasma Lactic Acid Carl (0.7-2.0) mmol/L Calcium (8.4-10.2) mg/dL Phosphorus 3.3 (2.5-4.5) mg/dL Magnesium 1.6 (1.6-2.3) mg/dL Total Bilirubin (0.2-1.3) mg/dL AST (17-59) U/L ALT (4-49) U/L Alkaline Phosphatase (38-126) U/L Troponin I <0.012 (0.000-0.034) ng/mL Total Protein (6.3-8.2) g/dL Albumin (3.5-5.0) g/dL Amylase (30-110) U/L Lipase (23-300) U/L Urine Color Urine Appearance (Clear) Urine pH (5.0-8.0) Ur Specific [place] (1.001-1.035) Urine Protein (Negative) Urine Glucose (UA) (Negative) Urine Ketones (Negative) Urine Blood (Negative) Urine Nitrite (Negative) Urine Bilirubin (Negative) Urine Urobilinogen (<2.0) mg/dL Ur Leukocyte Esterase (Negative) Urine RBC (0-5) /hpf Urine WBC (0-5) /hpf Urine Mucus (None) /hpf 07/12/23 Range/Units 22:05 WBC (3.8-10.6) k/uL RBC (4.30-5.90) m/uL Hgb (13.0-17.5) gm/dL Hct (39.0-53.0) % MCV (80.0-100.0) fL MCH (25.0-35.0) pg MCHC (31.0-37.0) g/dL RDW (11.5-15.5) % Plt Count (150-450) k/uL MPV Neutrophils % % Lymphocytes % % Monocytes % % Eosinophils % % Basophils % % Neutrophils # (1.3-7.7) k/uL Lymphocytes # (1.0-4.8) k/uL Monocytes # (0-1.0) k/uL Eosinophils # (0-0.7) k/uL Basophils # (0-0.2) k/uL PT (10.0-12.5) sec INR (<1.2) APTT (22.0-30.0) sec Sodium 142 (137-145) mmol/L Potassium 5.1 (3.5-5.1) mmol/L Chloride 107 (98-107) mmol/L Carbon Dioxide 27 (22-30) mmol/L Anion Gap 8 mmol/L BUN 18 (9-20) mg/dL Creatinine 1.49 H (0.66-1.25) mg/dL Est GFR (CKD-EPI)AfAm 53 (>60 ml/min/1.73 sqM) Est GFR (CKD-EPI)NonAf 46 (>60 ml/min/1.73 sqM) Glucose 113 H (74-99) mg/dL Plasma Lactic Acid Carl (0.7-2.0) mmol/L Calcium 10.0 (8.4-10.2) mg/dL Phosphorus (2.5-4.5) mg/dL Magnesium (1.6-2.3) mg/dL Total Bilirubin 0.9 (0.2-1.3) mg/dL AST 23 (17-59) U/L ALT 23 (4-49) U/L Alkaline Phosphatase 75 (38-126) U/L Troponin I (0.000-0.034) ng/mL Total Protein 7.6 (6.3-8.2) g/dL Albumin 4.8 (3.5-5.0) g/dL Amylase 73 (30-110) U/L Lipase 67 (23-300) U/L Urine Color Urine Appearance (Clear) Urine pH (5.0-8.0) Ur Specific [place] (1.001-1.035) Urine Protein (Negative) Urine Glucose (UA) (Negative) Urine Ketones (Negative) Urine Blood (Negative) Urine Nitrite (Negative) Urine Bilirubin (Negative) Urine Urobilinogen (<2.0) mg/dL Ur Leukocyte Esterase (Negative) Urine RBC (0-5) /hpf Urine WBC (0-5) /hpf Urine Mucus (None) /hpf Disposition <Belle Simmons - Last Filed: 07/12/23 18:42> Is patient prescribed a controlled substance at d/c from ED?: No Time of Disposition: 00:23 <Gavin Morris - Last Filed: 07/13/23 00:23> Clinical Impression: Ureterolithiasis Disposition: HOME SELF-CARE Condition: Stable Instructions (If sedation given, give patient instructions): Kidney Stones (ED) Additional Instructions: Please do follow-up with primary care physician in the next couple days for recheck. If symptoms continue consider urology evaluation. Return for fever, uncontrolled pain, nausea or vomiting, worsening symptoms or other concerns. Prescription for pain and nausea medicine sent to pharmacy Prescriptions: Metoclopramide HCl [Reglan] 10 mg PO Q6HR PRN #15 tablet PRN Reason: Nausea Ketorolac [Toradol] 10 mg PO Q6HR PRN #15 tab PRN Reason: Pain Referrals: Porfirio Garay MD [Primary Care Provider] - 1-2 days Ashish Jones MD [STAFF PHYSICIAN] - 1-2 days
[2023-07-12 18:52] VITALS: TEMP 98.8
[2023-07-12 21:17] LABS: Appearance,Urine Clear (Clear); Bilirubin,Urine Negative (Negative); Blood,Urine Moderate (Negative); Color,Urine Light Yellow; Glucose,Urine (UA) Negative (Negative); Ketones,Urine Negative (Negative); Leukocyte Esterase,Urine Negative (Negative); Mucus,Urine Rare /hpf; Nitrite,Urine Negative (Negative); PH, Urine 5.5 (5.0-8.0); Protein,Urine Negative (Negative); RBC,Urine 4 /hpf (0-5); Specific Gravity,Urine 1.023 (1.001-1.035); Urobilinogen,Urine <2.0 mg/dL (<2.0); WBC,Urine <1 /hpf (0-5)
[2023-07-12 21:23] LABS: Basophils # (A) 0.1 k/uL (0-0.2); Basophils % (A) 1 %; Eosinophils # (A) 0.1 k/uL (0-0.7); Eosinophils % (A) 1 %; HCT 49.2 % (39.0-53.0); HGB 15.2 gm/dL (13.0-17.5); Lymphocytes # (A) 1.3 k/uL (1.0-4.8); Lymphocytes % (A) 15 %; MCHC 30.9 g/dL (31.0-37.0); MCV 90.6 fL (80.0-100.0); Mean Platelet Volume 8.3; Monocytes # (A) 0.4 k/uL (0-1.0); Monocytes % (A) 4 %; Neutrophils # (A) 6.8 k/uL (1.3-7.7); Neutrophils % (A) 79 %; Platelet Count 201 k/uL (150-450); RBC 5.43 m/uL (4.30-5.90); WBC 8.6 k/uL (3.8-10.6)
[2023-07-12 22:34] LABS: ALT 23 U/L (4-49); AST 23 U/L (17-59); African American GFR (CKD) 53 (>60 ml/min/1.73 sqM); Albumin 4.8 g/dL (3.5-5.0); Alkaline Phosphatase 75 U/L (38-126); Amylase 73 U/L (30-110); Anion Gap 8 mmol/L; Blood Urea Nitrogen 18 mg/dL (9-20); Carbon Dioxide 27 mmol/L (22-30); Chloride 107 mmol/L (98-107); Glucose 113 mg/dL (74-99); Lipase 67 U/L (23-300); Non-African American GFR(CKD) 46 (>60 ml/min/1.73 sqM); Potassium 5.1 mmol/L (3.5-5.1); Sodium 142 mmol/L (137-145); Total Bilirubin 0.9 mg/dL (0.2-1.3); Total Protein 7.6 g/dL (6.3-8.2)
[2023-07-12 22:42] LABS: INR 0.9 (<1.2); Prothrombin Time 10.1 sec (10.0-12.5)
--- NOTE | 2023-07-12 22:50 | CT ---
EXAM: CT Abdomen and Pelvis Without Intravenous Contrast CLINICAL HISTORY: ITS.REASON CT Reason: pain TECHNIQUE: Axial computed tomography images of the abdomen and pelvis without intravenous contrast. CTDI is 22 mGy and DLP is 1557.4 mGy-cm. This CT exam was performed using one or more of the following dose reduction techniques: automated exposure control, adjustment of the mA and/or kV according to patient size, and/or use of iterative reconstruction technique. COMPARISON: No relevant prior studies available. FINDINGS: Lung bases: Unremarkable. No mass. No consolidation. ABDOMEN: Liver: Unremarkable. Gallbladder and bile ducts: Unremarkable. No calcified stones. No ductal dilation. Pancreas: Unremarkable. No ductal dilation. Spleen: Unremarkable. No splenomegaly. Adrenals: Unremarkable. No mass. Kidneys and ureters: Obstructing 2 mm LEFT UVJ stone. Mild hydronephrosis of the LEFT kidney with perinephric stranding. Stomach and bowel: Diverticulosis, without acute diverticulitis. No small bowel obstruction. No free intraperitoneal air. PELVIS: Appendix: Normal appendix. Bladder: Submucosal fatty infiltration of the urinary ladder, concerning for sequelae of previous cystitis. No stones. Reproductive: Unremarkable as visualized. ABDOMEN and PELVIS: Intraperitoneal space: Unremarkable. No free air. No significant fluid collection. Bones/joints: Bilateral pars defects at L5. No acute fracture. No dislocation. Soft tissues: Small fat-containing LEFT inguinal hernia. Vasculature: Unremarkable. No abdominal aortic aneurysm. Lymph nodes: Unremarkable. No enlarged lymph nodes. IMPRESSION: Obstructing 2 mm LEFT UVJ stone. Mild hydronephrosis of the LEFT kidney with perinephric stranding.
[2023-07-12 23:04] LABS: Magnesium 1.6 mg/dL (1.6-2.3); Phosphorus 3.3 mg/dL (2.5-4.5)
[2023-07-12] MEDS: SODIUM CHLORIDE 0.9% 1,000 ML IV STA (23:52)
[2023-07-12] MEDS: KETOROLAC 15 MG/ML 1 ML VIAL IVP STA (23:52)
[2023-07-12] MEDS: METOCLOPRAMIDE 5 MG/ML 2 ML VIAL IVP STA (23:52)
[2023-07-12] MEDS: ONDANSETRON 4 MG/2 ML VIAL IVP STA (23:53)
[2023-07-13 01:34] VITALS: BP 145/69; PULSE 62; RESP 18
== END 2023-07-13 01:10 | disposition home or self-care (01) ==
LOC: EC 18:30
DX: N13.2 Hydronephrosis with renal and ureteral calculous obstruction (principal)
CPT/HCPCS: 36415; 93005; 80053; 82150; 83605; 83690; 83735; 84100; 84484; 85025; 85610; 85730; 81001; 74176; 99284; 96374; 96375 ×2; 96361; J2765; J2405; J1885